=== PATIENT | female | born 1955 | race Caucasian/White ===

== ENCOUNTER 2016-05-02 06:57 | Inpatient (IN) | payer OTHER ==
[2016-05-02] MEDS ORDERED: cefOXitin SODIUM 1 GM in D5W 50 ML IV ONE (07:00)
[2016-05-02] MEDS ORDERED: BUPIVACAINE 0.5% 30 ML SDV ONE (07:11)
[2016-05-02] MEDS ORDERED: LIDOCAINE 1% 5 ML SDV ONE (07:26)
[2016-05-02 08:09] LABS: % IMMATURE GRANULYOCYTES 0.3 % (0.0-1.1); ABSOLUTE IMMATURE GRANULOCYTES 0.01 10^3/uL (0.00-0.10); ADD DIFF? NO; ADD MORPH? NO; ADD SCAN? NO; ATYPICAL LYMPHOCYTE FLAG 20 (0-99); FRAGMENT RBC FLAG 0 (0-99); HEMATOCRIT 38.4 % (38.0-47.0); HEMOGLOBIN 12.9 g/dL (12.6-16.3); LEFT SHIFT FLG 0 (0-99); LIPEMIA HEMOLYSIS FLAG 80 (0-99); MEAN CELL HEMOGLOBIN 28.4 pg (27.9-34.1); MEAN CELL HEMOGLOBIN CONCENTR. 33.6 g/dL (32.4-36.7); MEAN CELL VOLUME 84.4 fL (81.5-99.8); PLATELET CLUMPS FLAG 10 (0-99); PLATELET COUNT 212 10^3/uL (150-400); RED BLOOD CELL COUNT 4.55 10^6/uL (4.18-5.33); RED CELL DISTRIBUTION WIDTH 13.5 % (11.5-15.2)
[2016-05-02 08:20] LABS: APTT 27.1 SEC (23.0-38.0); INR 0.96 (0.83-1.16); PROTIME(PATIENT) 12.7 SEC (12.0-15.0)
[2016-05-02] MEDS ORDERED: MIDAZOLAM 2 MG/2 ML VIAL ONE (08:43)
[2016-05-02] MEDS ORDERED: SCOPOLAMINE HYDROBROMIDE 1.5 MG PATCH TD ONE (08:43)
[2016-05-02] MEDS ORDERED: fentaNYL 100 MCG/2 ML INJ ONE (08:57)
[2016-05-02] MEDS ORDERED: PROPOFOL 200 MG/20 ML VIAL ONE (08:57)
[2016-05-02 09:08] LABS: ANION GAP 10 mEq/L (8-16); CALCIUM 9.8 mg/dL (8.5-10.4); CARBON DIOXIDE 21 mEq/l (22-31); CHLORIDE 113 mEq/L (97-110); CREATININE 1.6 mg/dL (0.6-1.0); GLOMERULAR FILTRATION RATE 33; GLUCOSE 90 mg/dL (70-100); POTASSIUM 4.8 mEq/L (3.5-5.2); SODIUM 144 mEq/L (134-144)
[2016-05-02] MEDS ORDERED: HYDROmorphONE/DILAUDID 2 MG/ML SYR ONE (09:36)
[2016-05-02] MEDS ORDERED: hydrALAZINE 20 MG/ML VIAL ONE (10:42)
[2016-05-02] MEDS ORDERED: fentaNYL 250 MCG/5 ML INJ ONE (10:53)
[2016-05-02] MEDS ORDERED: ONDANSETRON 4 MG/2 ML VIAL ONE (11:34)
[2016-05-02] MEDS ORDERED: DEXAMETHASONE 4 MG/ML VIAL ONE ×2 (11:34)
[2016-05-02] MEDS ORDERED: epHEDrine SULFATE 10 MG/ML SYR ONE ×2 (11:50)
[2016-05-02] MEDS ORDERED: SKIN ADHESIVE (DERMABOND) 1 EACH TP ONE (12:17)
[2016-05-02] MEDS ORDERED: SUGAMMADEX SODIUM 200 MG/2 ML VIAL IVP ONE (12:35)
--- NOTE | 2016-05-02 12:40 | POSTOPPROG ---
Post Op Note Date of Operation: 05/02/16 Surgeon: Shaneka Goss Hydrology Technician: yariel Anesthesiologist: asael Anesthesia: GET(General Endotracheal) Pre-op Diagnosis: rectal ca Post-op Diagnosis: same Indication: 61yo F with rectal ca s/p chemo and radiation Procedure: robotic-assisted LAR with diverting ileostomy Findings: low rectal mass, anastomotic rings intact Inf/Abcess present in the surg proc area at time of surgery?: No Depth: Organ Space EBL: 50-100 Complications: none Drains: Diallo Zapien Specimen(s): rectum anastomotic rings
[2016-05-02] MEDS ORDERED: diphenhydrAMINE 25 MG CAP PO PRN (12:42)
[2016-05-02] MEDS ORDERED: ACETAMINOPHEN 325 MG TAB PO PRN (12:42)
[2016-05-02] MEDS ORDERED: ONDANSETRON DISINTEGRATING 4 MG TAB PO PRN (12:42)
[2016-05-02] MEDS ORDERED: ONDANSETRON 4 MG/2 ML VIAL IVP PRN (12:42)
[2016-05-02] MEDS ORDERED: HYDROmorphONE/DILAUDID 6 MG/30 ML PCA IV PRN (12:42)
[2016-05-02] MEDS ORDERED: NALOXONE HCL 0.4 MG/ML INJ IVP PRN (12:42)
[2016-05-02] MEDS: NS 1,000 ML IV SCH (16:24)
[2016-05-03] MEDS: NS 1,000 ML IV SCH (03:17)
[2016-05-03 05:40] LABS: % IMMATURE GRANULYOCYTES 0.4 % (0.0-1.1); ABSOLUTE IMMATURE GRANULOCYTES 0.04 10^3/uL (0.00-0.10); ADD DIFF? NO; ADD MORPH? NO; ADD SCAN? NO; ATYPICAL LYMPHOCYTE FLAG 0 (0-99); FRAGMENT RBC FLAG 0 (0-99); HEMATOCRIT 31.2 % (38.0-47.0); HEMOGLOBIN 10.5 g/dL (12.6-16.3); LEFT SHIFT FLG 10 (0-99); LIPEMIA HEMOLYSIS FLAG 80 (0-99); MEAN CELL HEMOGLOBIN 28.5 pg (27.9-34.1); MEAN CELL HEMOGLOBIN CONCENTR. 33.7 g/dL (32.4-36.7); MEAN CELL VOLUME 84.8 fL (81.5-99.8); MEAN PLATELET VOLUME 9.9 fL (8.7-11.7); PLATELET CLUMPS FLAG 10 (0-99); PLATELET COUNT 165 10^3/uL (150-400); RED BLOOD CELL COUNT 3.68 10^6/uL (4.18-5.33); RED CELL DISTRIBUTION WIDTH 13.5 % (11.5-15.2)
[2016-05-03 05:49] LABS: ANION GAP 8 mEq/L (8-16); CALCIUM 8.9 mg/dL (8.5-10.4); CARBON DIOXIDE 20 mEq/l (22-31); CHLORIDE 117 mEq/L (97-110); CREATININE 1.5 mg/dL (0.6-1.0); GLOMERULAR FILTRATION RATE 35; GLUCOSE 91 mg/dL (70-100); SODIUM 145 mEq/L (134-144)
[2016-05-03] MEDS ORDERED: ENOXAPARIN 40 MG/0.4 ML SYR SC SCH (09:00)
[2016-05-03] MEDS: ENOXAPARIN 30 MG/0.3 ML SYR SC SCH (09:27)
[2016-05-03] MEDS: LOSARTAN POTASSIUM 25 MG TAB PO SCH (09:27)
--- NOTE | 2016-05-03 11:03 | SOAPPROG ---
SOAP Progress Note Assessment/Plan: Assessment: 61 yo s/p Davinic LAR with diverting loop ileostomy for rectal cancer and neoadjuvant chemoradiation Doing well Neuro - Pain controlled Resp - IS Cards - Monitor for hemodynamic instability. CBC tomorrow GI - Bilious fluid in ostomy appliance. Awaiting gas FEN - NS @ 50. Clears - 8-12 oz per 8 hours - DC call. Baseline elevated Cr Heme/ID - No post op abx indicated. Heparin SQ for prophylaxis Dispo - Inpatient, continue hospital management S: Pain controlled. Not taking pain medications O: Sitting in bed, at bedside Lungs clear, decreased at bases Regular rate BS hypoactive, distension but soft. Mild reactive erythema by incisions. PORSHA with serosanguinous fluid. Ostomy with good profile and bilious fluid in bag Plan: 05/03/16 10:59 Objective: Vital Signs Temp Pulse Resp BP Pulse Ox 36.6 C 80 16 154/75 H 96 05/03/16 07:49 05/03/16 07:49 05/03/16 07:49 05/03/16 09:27 05/03/16 07:49 Laboratory Results 05/03/16 04:34 05/03/16 04:34 05/02/16 05/03/16 05/04/16 05:59 05:59 05:59 Intake Total 2700 Output Total 1250 Balance 1450 PT 12.7 SEC (12.0-15.0) 05/02/16 08:00 INR 0.96 (0.83-1.16) 05/02/16 08:00 ICD10 Worksheet Patient Problems: Problems Problem Status Diagnosed Rectal cancer Acute - ICD10 Problem Qualifiers (1) Rectal cancer
--- NOTE | 2016-05-03 12:22 | GOP ---
[f rep st] OPERATIVE REPORT DATE OF OPERATION: 05/02/2016 SURGEON: Shaneka Goss MD HANDICAPPER HARNESS RACING: HALINA Weir ANESTHESIA: General. ANESTHESIOLOGIST: Houston Candelaria MD PREOPERATIVE DIAGNOSIS: Rectal cancer. POSTOPERATIVE DIAGNOSIS: Rectal cancer. PROCEDURE PERFORMED: Robotic-assisted low anterior resection with diverting ileostomy. FINDINGS: Tattoo well beneath the level of the peritoneal reflection with at least 6 cm grossly on either side. The anastomotic rings were intact. SPECIMENS: Rectum and anastomotic rings. ESTIMATED BLOOD LOSS: 100 cc. INDICATIONS: This patient is a 61-year-old woman with rectal cancer. She underwent neoadjuvant chemoradiation. She presents for resection. DESCRIPTION OF PROCEDURE: The patient was brought into the operating room, placed supine on the table, and general anesthesia was administered. She was then placed in the lithotomy position. Her abdomen and perineum were prepped and draped in the usual sterile fashion. I infiltrated all sites with 0.5% Marcaine prior to making incisions. I made an incision approximately 3 fingerbreadths above her umbilicus to avoid her previous midline incision. I elevated it and made a small incision and inserted the Veress needle. It passed the hanging drop test. Her abdomen insufflated easily to a pressure of 15 mmHg. I inserted the trocar at this site. I then inserted the camera. There were no injuries from trocar placement noted. Under direct vision I placed an 8 mm trocar where I had placed the diverting loop ileostomy in the right lower abdomen and also one in the left lower abdomen. I created an contact center assistant port in the left upper abdomen beneath the costal margin. The robot was brought in. She was placed in the Trendelenburg position. The robot was docked. I turned the insufflation down to 12. I inserted the instruments under direct vision. I placed a grapter in the left upper quadrant , the ProGrasp in the left lower quadrant and fenestrated bipolar in the right lower quadrant. I explored her abdomen. She had a redundant colon. I was able to sweep this out of the way and hold in place with the grapter. I then exchanged and began my dissection with the Harmonic. The sigmoid colon was retracted anteriorly. Due to her uterus and redundant sigmoid, I placed an additional 5 mm trocar in the right upper abdomen. The sigmoid colon was retracted anteriorly and the uterus was also retracted anteriorly. An incision was made in the peritoneum at the level of the sacral promontory and dissection carried out to bring up the mesentery from the retroperitoneum. Posterior dissection of the rectum was done in the presacral space using the Harmonic until I was 6 cm beyond the level of the tattoo. Lateral dissection was performed. Care was taken to avoid injury to the ureters. The lateral attachments were taken down. Anteriorly the peritoneal reflection was opened up and dissection carried distally. The mesentery of the rectum was taken down. I then exchanged the 8 mm trocar for a larger trocar that would accommodate the robotic stapler. I was able to staple the rectum, so I was well beyond the level of the tattoo. The end of the specimen was grasped. I then undocked the robot and moved to the bedside. I made a 5 cm incision over her previous incision in the midline. I dissected down through the subcutaneous space. I divided the muscles and entered the peritoneal cavity. I inserted an Chapito wound protector. I grasped the sigmoid. I divided it sharply. There was healthy bleeding. The specimen was passed off the field. Pathology looked at it and saw the area of concern with 5.5 cm margins on either side. I placed a pursestring suture around the sigmoid colon with 2-0 Prolene. I inserted the anvil and tied this into place. I then placed this back into the abdomen. The Talia drain was placed around the trocar with the Chapito wound protector and towel clips. The abdomen was reinsufflated, used a laparoscope. Next anal dilators were placed. Finally a 29 EEA was placed and the spike was deployed. This was connected to the anvil and the stapler was fired. A leak test was performed and there was no leak. The donuts were inspected and found to be intact. The abdomen was explored. There was no evidence of metastasis. There was no evidence of bleeding. I selected a point on the terminal ilium. I made an ellipse around where the trocar was. I divided down to the fascia enough to accommodate 3 fingerbreadths. brought up the loop of small intestine. I placed a 15 round silicone drain deep in the pelvis. I sutured this in place with 3-0 Nylon. I Next I closed the fascia at the peritoneal with 0 Vicryl. I closed the fascia with 0 PDS. I closed the skin with 3-0 Vicryl followed by 4- 0 Monocryl. The remaining skin incisions were closed with 4-0 Monocryl. Dermabond applied. Next I sutured the ilium to the fascia at the 2 anchoring points with 0 Vicryl. I then made an incision in the ilium to create a diverting loop ileostomy. I performed Brooking sutures with 3-0 Vicryl. I finally matured the rest of the ostomy with 3-0 Vicryl. An appliance was placed. The patient was taken out of the lithotomy position, placed supine, awakened, extubated, and transferred to PACU in stable condition. DRAINS: Cynthia. /[id number]/MODL MTDD
[2016-05-03] MEDS: HYDROCODONE/APAP 5/325 TAB PO PRN ×2 (13:25→20:50)
[2016-05-04 04:29] LABS: % IMMATURE GRANULYOCYTES 0.2 % (0.0-1.1); ABSOLUTE IMMATURE GRANULOCYTES 0.02 10^3/uL (0.00-0.10); ADD DIFF? NO; ADD MORPH? NO; ADD SCAN? NO; ATYPICAL LYMPHOCYTE FLAG 0 (0-99); FRAGMENT RBC FLAG 0 (0-99); HEMATOCRIT 31.2 % (38.0-47.0); HEMOGLOBIN 10.1 g/dL (12.6-16.3); LEFT SHIFT FLG 0 (0-99); LIPEMIA HEMOLYSIS FLAG 80 (0-99); MEAN CELL HEMOGLOBIN 28.1 pg (27.9-34.1); MEAN CELL HEMOGLOBIN CONCENTR. 32.4 g/dL (32.4-36.7); MEAN CELL VOLUME 86.7 fL (81.5-99.8); PLATELET CLUMPS FLAG 0 (0-99); PLATELET COUNT 160 10^3/uL (150-400); RED CELL DISTRIBUTION WIDTH 13.9 % (11.5-15.2)
[2016-05-04] MEDS: LOSARTAN POTASSIUM 25 MG TAB PO SCH (08:33)
[2016-05-04] MEDS: ENOXAPARIN 30 MG/0.3 ML SYR SC SCH (08:33)
[2016-05-04] MEDS: HYDROCODONE/APAP 5/325 TAB PO PRN ×2 (08:43→21:38)
--- NOTE | 2016-05-04 09:35 | SOAPPROG ---
SOAP Progress Note Assessment/Plan: Assessment: 61 yo s/p Davinic LAR with diverting loop ileostomy for rectal cancer and neoadjuvant chemoradiation Doing well Neuro - Pain controlled Resp - IS Cards - Monitor for hemodynamic instability. CBC tomorrow GI - Bilious fluid in ostomy appliance. Gas today FEN - NS @ 50. Clears - DC call 05/03. Baseline elevated Cr Heme/ID - No post op abx indicated. Heparin SQ for prophylaxis Dispo - Inpatient, continue hospital management S: Pain controlled. Not taking pain medications O: Sitting in bed, at bedside Lungs clear, decreased at bases Regular rate BS active, distension but soft. Mild reactive erythema by incisions. PORSHA with serosanguinous fluid. Ostomy with good profile and bilious fluid in bag Plan: 05/03/16 10:59 05/04/16 09:34 Objective: Vital Signs Temp Pulse Resp BP Pulse Ox 36.7 C 85 16 176/96 H 94 05/04/16 08:46 05/04/16 08:46 05/04/16 08:46 05/04/16 08:46 05/04/16 08:46 Laboratory Results 05/04/16 04:11 05/03/16 04:34 05/03/16 05/04/16 05/05/16 05:59 05:59 05:59 Intake Total 2700 1242 Output Total 1250 338 Balance 1450 904 PT 12.7 SEC (12.0-15.0) 05/02/16 08:00 INR 0.96 (0.83-1.16) 05/02/16 08:00 ICD10 Worksheet Patient Problems: Problems Problem Status Diagnosed Rectal cancer Acute - ICD10 Problem Qualifiers (1) Rectal cancer
[2016-05-05] MEDS: LOSARTAN POTASSIUM 25 MG TAB PO SCH (08:28)
[2016-05-05] MEDS: ENOXAPARIN 30 MG/0.3 ML SYR SC SCH (08:29)
--- NOTE | 2016-05-05 09:44 | SOAPPROG ---
SOAP Progress Note Assessment/Plan: Assessment: Laura Curry is a 61 yo F POD #3 s/p Davinci LAR with diverting loop ileostomy for rectal cancer and neoadjuvant chemoradiation Neuro - Pain controlled with PO norco Resp - IS Cards - No current issues. Monitor for hemodynamic instability GI - Bilious fluid in ostomy appliance. Passing flatus. No stool in appliance FEN - NS @ 50. Tolerating clears. Advance to regular - DC call 05/03. Voiding spontaneously. Baseline elevated Cr Heme/ID - No post op abx indicated. Ppx heparin SQ Ostomy education Dispo - Likely d/c tomorrow with home care for ostomy care and education S: She reportedly had a bowel movement last night through the ostomy. Small amount of pain associated with BM. Resolved with norco. No pain currently. No nausea or vomiting. tolerating clears. hungry. O: Laying comfortably in bed, at bedside No increased WOB BS hypoactive but present, softly distended. Mild reactive erythema by incisions. PORSHA with serosanguinous fluid. Ostomy with good profile and bilious fluid in bag Nontender to palpation Objective: Vital Signs Temp Pulse Resp BP Pulse Ox 36.6 C 82 17 152/90 H 96 05/05/16 07:35 05/05/16 07:35 05/05/16 07:35 05/05/16 07:35 05/05/16 07:35 Laboratory Results 05/04/16 04:11 05/03/16 04:34 05/04/16 05/05/16 05/06/16 05:59 05:59 05:59 Intake Total 1242 2132 Output Total 338 420 Balance 904 1712 PT 12.7 SEC (12.0-15.0) 05/02/16 08:00 INR 0.96 (0.83-1.16) 05/02/16 08:00 ICD10 Worksheet Patient Problems: Problems Problem Status Diagnosed Rectal cancer Acute
[2016-05-05 11:17] VITALS: RESP 16
[2016-05-05] MEDS: HYDROCODONE/APAP 5/325 TAB PO PRN (13:37)
--- NOTE | 2016-05-05 15:00 | WOCRNPDOC ---
WOCRN Advanced Assessment Note - Ileostomy Assessment, Advanced Right Lower Abdomen Ileostomy Ileostomy Appliance Intact: Yes Ileostomy Appliance Currently in Use: Two Piece Flat, 2 1/4 (patient will be better served by 2 3/4 wafer in [facility]) Stoma Color: Red Stoma Turgor: Moist, Shiny Stoma Height: Protruding Ileostomy Effluent: Fecal, Thin Ileostomy Details: Loop Ileostomy Comment/Treatment Details: Patient had previous first appointment at outpatient wound healing center. Attempted teaching today but patient very nervous. Opted to give patient reading about pouch change first and to revisit tomorrow. Offered to do demo pouch change without involving her stoma but patient declined and preffered to defer to tomorrow. Trying to assist patient in ordering supplies from [facility] but having difficulty contacting the rep/ getting order sheet. Will follow up tomorrow. Reported to BRENDEN rojas that patient needs to empty own bag and be 100% responsible for her ostomy care until discharge.
[2016-05-06] MEDS: NS 1,000 ML IV SCH (04:26)
[2016-05-06 05:13] VITALS: TEMP 97.9
[2016-05-06 08:30] VITALS: BP 125/89; PULSE 96; O2SAT 95
[2016-05-06] MEDS: LOSARTAN POTASSIUM 25 MG TAB PO SCH (08:31)
[2016-05-06] MEDS: ENOXAPARIN 30 MG/0.3 ML SYR SC SCH (08:39)
[2016-05-06] MEDS: HYDROCODONE/APAP 5/325 TAB PO PRN (08:43)
--- NOTE | 2016-05-06 10:34 | PDIAF ---
- Diagnosis Diagnosis: rectal cancer Code Status: Full Code - Medication Management Discharge Medications: Medications to Continue on Transfer Losartan Potassium [Cozaar 25 mg (*)] 25 mg PO DAILY 04/23/16 [Last Taken ] Hydrocodone/APAP 5/325 [[place] 5/325 (*)] 2 tab PO Q4 PRN #30 tab 05/06/16 [Last Taken Unknown] Penitentiary Antibiotics: none Discharge Medications: Refer to the Discharge Home Medication list for PRN reason. PICC Care - Routine: N/A - Orders Services needed: Home Care, Registered Nurse Home Care Face to Face: I certify that this patient was under my care and that I had the required [id number] encounter meeting the encounter requirements on the discharge day. My findings support the fact that the patient is homebound as defined in CMS Chapter 7 Medicare Benefits Manual 30.1.1, The condition of the patient is such that there exists a normal inability to leave home and consequently, leaving home would require a considerable and taxing effort. Diet Recommendation: no restrictions on diet Diet Texture: Regular Texture Diet Wound Care Instructions: Ostomy care and education - Follow Up Care Current Providers and Referrals: Marcella Washburn MD [Primary Care Provider] - Shaneka Goss MD [Medical Doctor] -
--- NOTE | 2016-05-06 10:41 | SOAPPROG ---
SOAP Progress Note Assessment/Plan: Assessment: Laura Curry is a 61 yo F POD #4 s/p Davinci LAR with diverting loop ileostomy for rectal cancer and neoadjuvant chemoradiation Pain controlled with [place] Bilious fluid and gas per ostomy Tolerating regular diet Will have home care to continue ostomy education Dispo - D/c today with home care for ostomy care and education S: Pain controlled. Passing gas and stool per ostomy. No n/v or abdominal pain O: In bed participating in ostomy appliance change, at bedside No increased WOB +BS, soft. No erythema around incision. PORSHA with serosanguinous fluid. Ostomy edematous draining bilious fluid Nontender to palpation Objective: Vital Signs Temp Pulse Resp BP Pulse Ox 36.6 C 96 16 125/89 H 95 05/06/16 08:29 05/06/16 08:29 05/06/16 08:29 05/06/16 08:29 05/06/16 08:29 Laboratory Results 05/04/16 04:11 05/03/16 04:34 05/05/16 05/06/16 05/07/16 05:59 05:59 05:59 Intake Total 2132 1900 Output Total 420 622 455 Balance 1712 1278 -455 PT 12.7 SEC (12.0-15.0) 05/02/16 08:00 INR 0.96 (0.83-1.16) 05/02/16 08:00 ICD10 Worksheet Patient Problems: Problems Problem Status Diagnosed Rectal cancer Acute
--- NOTE | 2016-05-06 11:30 | WOCRNPDOC ---
ROSHAN Advanced Assessment Note - Ileostomy Assessment, Advanced Right Lower Abdomen Ileostomy Ileostomy Appliance Intact: Yes Ileostomy Appliance Currently in Use: Two Piece Flat, 2 1/4, Moldable Stoma Color: Red Stoma Turgor: Moist Stoma Shape: Oval Stoma Height: Protruding Mucocutaneus Junction: Intact Ileostomy Effluent: Fecal, Liquid Ileostomy Details: Loop Ileostomy Comment/Treatment Details: Follow-up teaching and appliance change at the bedside. Patient emptied existing pouch, and demonstrated adequate dexterity and understanding of process. I performed a full appliance and pouch change with her assistance. Stoma is moist and red, w/ a medium profile and good turgor. Mucocutaneous junction intact w/ sutures noted. Rachel-stomal skin is intact w/ no complications observed. Because this is an ileostomy, w/ high liquid effluent output, I switched patient over to a 2 3/4 cut-to-fit barrier wafer. In addition, I applied a barrier ring to help prevent leaks. Patient attached pouch herself. While she demonstrated a good understanding of the pouch /barrier change process, she would benefit from a few additional teaching sessions. She asked several questions, at times repeating herself, which is an indication that follow-up teaching is needed. Supply order for barrier wafers, rings, pouches, and adhesive remover wipes was faxed to [facility]. In addition, I spoke w/ case managment about setting up at least 2-3 visits from a home theater specialist after discharge to solidify teaching and assess learning.
== END 2016-05-06 13:53 | disposition home health service (06) | DRG 331 ==
LOC: F3E 06:57 → F1N 14:44
PROVIDERS: ADMIT Surgery; ATTEND Surgery
DX: C20 Malignant neoplasm of rectum (principal); Z92.3 Personal history of irradiation; Z92.21 Personal history of antineoplastic chemotherapy; N18.9 Chronic kidney disease, unspecified; I12.9 Hypertensive chronic kidney disease with stage 1 through stage 4 chronic kidney disease, or unspecified chronic kidney disease
CPT/HCPCS: J0360; J0697; J1100; J1170; J1650; J2250; J2405; J2704; J3010

== ENCOUNTER → 2016-07-23 | Outpatient (CLI) | payer OTHER | LOC: FIMAGING 09:04 | PROVIDERS: ATTEND Surgery | DX: Z08 Encounter for follow-up examination after completed treatment for malignant neoplasm (principal); Z85.048 Personal history of other malignant neoplasm of rectum, rectosigmoid junction, and anus ==

== ENCOUNTER 2016-08-01 10:27 | Inpatient (IN) | payer OTHER ==
[~2016-08-01 10:27] MED LIST: cefOXitin SODIUM 1 GM in D5W 50 ML IV ONE
[2016-08-01] MEDS ORDERED: LIDOCAINE 1% 5 ML SDV ONE (10:47)
[2016-08-01] MEDS ORDERED: BUPIVACAINE 0.5% 30 ML SDV ONE (10:57)
[2016-08-01] MEDS ORDERED: LIDOCAINE 1% 5 ML SDV ID PRN (11:18)
[2016-08-01] MEDS ORDERED: LR 1,000 ML IV ONE (11:18)
--- NOTE | 2016-08-01 11:33 | GHP ---
[f rep st] PREOP HISTORY AND PHYSICAL DATE OF ADMISSION: 08/01/2016 ADMITTING DIAGNOSIS: Rectal cancer, status post low anterior resection with diverting ileostomy. HISTORY OF PRESENT ILLNESS: The patient is a 61-year-old woman who had a colonoscopy on 10/23/2015, which showed a fungating ulcerated medium-size mass 7 cm proximal to the anus. She was taken to [facility] operating room for LAR with diverting ileostomy on 05/02/2016. Final pathology revealed no residu al malignancy. She was discharged home on postoperative day #4. She presents today for takedown of her ileostomy. She denies any changes in her health since her last visit. PAST MEDICAL HISTORY: Rectal cancer. PAST SURGICAL HISTORY: Low anterior resection with diverting ileostomy as above. ALLERGIES: No known drug allergies. REVIEW OF SYSTEMS: Ten-point review of systems negative aside from HPI. PHYSICAL EXAMINATION: GENERAL: Well-developed, well-nourished, well-groomed woman in no acute dist ress, accompanied by . HEENT: Normocephalic, atraumatic. No hearing deficits. Pupils equa l and round. No scleral icterus. Mucous membranes moist. NECK: Trachea midline. RESPIRATORY: C lear to auscultation bilaterally. No increased work of breathing. CARDIOVASCULAR: Regular rate an d rhythm. No peripheral edema. ABDOMEN: Bowel sounds present. Soft, nontender, nondistended. Os han pink with good profile. MUSCULOSKELETAL: Normal gait. Normal nails. SKIN: Warm and dry. P SYCH: Mood and affect normal. IMPRESSION AND PLAN: The patient is a 61-year-old woman with rectal cancer who presents now for bill edown of ileostomy. We discussed risks of surgery including, but not limited to, heart attack, stro ke, blood clots, . We discussed the risk of infection, bleeding, leak or damage to surrounding structures. She understands the risks and would like to proceed. She had a Gastrografin enema pre op which was normal. She had her questions answered to her satisfaction. The patient additionally was seen by Dr. Shaneka Goss. /[id number]/MODL
[2016-08-01] MEDS ORDERED: PROPOFOL 200 MG/20 ML VIAL ONE (11:51)
[2016-08-01] MEDS ORDERED: fentaNYL 250 MCG/5 ML INJ ONE (11:51)
[2016-08-01] MEDS ORDERED: MIDAZOLAM 2 MG/2 ML VIAL ONE (12:22)
--- NOTE | 2016-08-01 13:56 | POSTOPPROG ---
Post Op Note Date of Operation: 08/01/16 Surgeon: Shaneka Goss [facility] Scientist: yariel Anesthesiologist: zeferino Anesthesia: GET(General Endotracheal) Pre-op Diagnosis: rectal cancer Post-op Diagnosis: same Indication: 61yo F with rectal cancer and diverting ileostomy who presents for reversal Procedure: ileostomy takedown Findings: none unusual Inf/Abcess present in the surg proc area at time of surgery?: No Depth: Organ Space EBL: Minimal Complications: none immediately postoperatively
[2016-08-01] MEDS ORDERED: ONDANSETRON DISINTEGRATING 4 MG TAB PO PRN (13:58)
[2016-08-01] MEDS ORDERED: diphenhydrAMINE 25 MG CAP PO PRN (13:58)
[2016-08-01] MEDS ORDERED: ACETAMINOPHEN 325 MG TAB PO PRN (13:58)
[2016-08-01] MEDS ORDERED: HYDROmorphONE/DILAUDID 1 MG/ML SYR IVP PRN (13:58)
[2016-08-01] MEDS ORDERED: HYDROCODONE/APAP 5/325 TAB PO PRN (13:58)
[2016-08-01] MEDS ORDERED: ONDANSETRON 4 MG/2 ML VIAL IVP PRN (13:58)
[2016-08-01] MEDS ORDERED: fentaNYL 100 MCG/2 ML INJ ONE (14:00)
[2016-08-01] MEDS ORDERED: hydrALAZINE 20 MG/ML VIAL ONE (14:11)
--- NOTE | 2016-08-01 14:22 | GOP ---
[f rep st] OPERATIVE REPORT DATE OF OPERATION: 08/01/2016 SURGEON: Shaneka Goss MD SUPERVISOR CELLARS: Brittany Ho PA-C. ANESTHESIA: General. ANESTHESIOLOGIST: Richard Paez. PREOPERATIVE DIAGNOSIS: Rectal cancer with diverting loop ileostomy. POSTOPERATIVE DIAGNOSIS: Rectal cancer with diverting loop ileostomy. PROCEDURE PERFORMED: Loop ileostomy take down. FINDINGS: No unusual findings. SPECIMENS: Terminal ilium to Pathology. ESTIMATED BLOOD LOSS: 10 cc. INDICATIONS: The patient is a 61-year-old woman who underwent chemoradiation followed by a low ante rior resection for cancer. She had a diverting loop ileostomy. DESCRIPTION OF PROCEDURE: The patient was brought into the operating room, placed supine on the tab le, and general anesthesia was administered. I sutured her ileostomy close prior to the start of e case. Her abdomen was prepped with Betadine and draped in the usual sterile fashion. I infiltrat ed the area with 0.5% Marcaine prior to making incisions. I made an ellipse around the takedown sit e. I dissected down through the subcutaneous tissues until I encountered the wall of the bowel. I then traced this to the level of the fascia. I dissected both limbs of the bowel free from the surr ounding fascia. It was clear both above and below the peritoneum. I then clipped the suture I had made preoperatively and entered a MAX stapler through each limb of the bowel and fired the stapler t o make a [id number] functional end-to-end anastomosis. I reinforced the staple line. I then used a 2nd MAX 75 to close the enterotomy. The anastomosis was widely patent. There were no areas of c oncern. There was excellent blood supply. The bowel was returned to the abdominal cavity. The fas jo was closed with 0 PDS. Skin closed with 0 Vicryl in a pursestring fashion. Anisha, Hydrofera B lue and an Allevyn border were placed. She was awakened in the operating room, extubated, transferr ed to PACU in stable condition. /[id number]/MODL
[2016-08-01] MEDS ORDERED: HYDROmorphONE/DILAUDID 2 MG/ML INJ ONE (14:23)
[2016-08-01] MEDS: NS 1,000 ML IV SCH (17:10)
[2016-08-02 05:39] LABS: % IMMATURE GRANULYOCYTES 0.7 % (0.0-1.1); ABSOLUTE IMMATURE GRANULOCYTES 0.07 10^3/uL (0.00-0.10); ADD DIFF? NO; ADD MORPH? NO; ADD SCAN? NO; ATYPICAL LYMPHOCYTE FLAG 0 (0-99); FRAGMENT RBC FLAG 0 (0-99); HEMATOCRIT 29.6 % (38.0-47.0); HEMOGLOBIN 9.6 g/dL (12.6-16.3); LEFT SHIFT FLG 10 (0-99); LIPEMIA HEMOLYSIS FLAG 80 (0-99); MEAN CELL HEMOGLOBIN 26.4 pg (27.9-34.1); MEAN CELL HEMOGLOBIN CONCENTR. 32.4 g/dL (32.4-36.7); MEAN CELL VOLUME 81.3 fL (81.5-99.8); MEAN PLATELET VOLUME 9.4 fL (8.7-11.7); PLATELET CLUMPS FLAG 30 (0-99); PLATELET COUNT 215 10^3/uL (150-400); RED BLOOD CELL COUNT 3.64 10^6/uL (4.18-5.33); RED CELL DISTRIBUTION WIDTH 13.7 % (11.5-15.2)
[2016-08-02 05:51] LABS: ANION GAP 11 mEq/L (8-16); CALCIUM 9.2 mg/dL (8.5-10.4); CARBON DIOXIDE 14 mEq/l (22-31); CHLORIDE 120 mEq/L (97-110); GLOMERULAR FILTRATION RATE 25; GLUCOSE 100 mg/dL (70-100); POTASSIUM 5.4 mEq/L (3.5-5.2); SODIUM 145 mEq/L (134-144)
--- NOTE | 2016-08-02 11:00 | SOAPPROG ---
SOAP Progress Note Assessment/Plan: Assessment: s/p ileostomy takedown not using pain medications ambulate clears, adat when passing flatus S: Has pain but tolerable. No flatus. No nausea O: Abdomen soft. Dressing stained. Sitting in chair, appears comfortable Plan: 08/02/16 10:59 Objective: Vital Signs Temp Pulse Resp BP Pulse Ox 36.6 C 92 16 151/78 H 98 08/02/16 08:00 08/02/16 08:00 08/02/16 08:00 08/02/16 08:00 08/02/16 08:00 Laboratory Results 08/02/16 05:22 08/02/16 05:22 08/01/16 08/02/16 08/03/16 05:59 05:59 05:59 Intake Total 1853 Output Total 700 Balance 1153 ICD10 Worksheet Patient Problems: Problems Problem Status Onset Rectal cancer Acute
[2016-08-02] MEDS: ENOXAPARIN 40 MG/0.4 ML SYR SC SCH (11:29)
[2016-08-02 15:25] LABS: POTASSIUM 4.6 mEq/L (3.5-5.2)
[2016-08-02] MEDS: NS 1,000 ML IV SCH (17:20)
[2016-08-02] MEDS: HYDROCODONE/APAP 5/325 TAB PO PRN (20:53)
[2016-08-02] MEDS: LOSARTAN POTASSIUM 25 MG TAB PO SCH (22:32)
[2016-08-03] MEDS ORDERED: hydrALAZINE 20 MG/ML VIAL IVP PRN (00:30)
[2016-08-03 05:34] LABS: % IMMATURE GRANULYOCYTES 0.6 % (0.0-1.1); ABSOLUTE IMMATURE GRANULOCYTES 0.05 10^3/uL (0.00-0.10); ADD DIFF? NO; ADD MORPH? NO; ADD SCAN? NO; ATYPICAL LYMPHOCYTE FLAG 0 (0-99); FRAGMENT RBC FLAG 0 (0-99); HEMATOCRIT 29.8 % (38.0-47.0); HEMOGLOBIN 9.8 g/dL (12.6-16.3); LEFT SHIFT FLG 0 (0-99); LIPEMIA HEMOLYSIS FLAG 80 (0-99); MEAN CELL HEMOGLOBIN 26.5 pg (27.9-34.1); MEAN CELL HEMOGLOBIN CONCENTR. 32.9 g/dL (32.4-36.7); MEAN CELL VOLUME 80.5 fL (81.5-99.8); MEAN PLATELET VOLUME 9.5 fL (8.7-11.7); PLATELET CLUMPS FLAG 0 (0-99); PLATELET COUNT 211 10^3/uL (150-400); RED CELL DISTRIBUTION WIDTH 13.8 % (11.5-15.2)
[2016-08-03 05:51] LABS: ANION GAP 13 mEq/L (8-16); CALCIUM 9.4 mg/dL (8.5-10.4); CARBON DIOXIDE 14 mEq/l (22-31); CHLORIDE 117 mEq/L (97-110); CREATININE 1.5 mg/dL (0.6-1.0); GLOMERULAR FILTRATION RATE 35; GLUCOSE 96 mg/dL (70-100); SODIUM 144 mEq/L (134-144)
[2016-08-03] MEDS: ENOXAPARIN 40 MG/0.4 ML SYR SC SCH (08:38)
[2016-08-03] MEDS: LOSARTAN POTASSIUM 25 MG TAB PO SCH ×2 (08:38→18:02)
--- NOTE | 2016-08-03 10:36 | SOAPPROG ---
SOAP Progress Note Assessment/Plan: Assessment: s/p ileostomy takedown not using pain medications ambulate Regular diet S: Has pain but tolerable. Flatus. Small amount of blood. No nausea O: Abdomen soft. Dressing stained. Sitting in chair, appears comfortable Plan: 08/02/16 10:59 08/03/16 10:36 Objective: Vital Signs Temp Pulse Resp BP Pulse Ox 36.4 C 109 H 16 179/105 H 99 08/03/16 08:00 08/03/16 08:00 08/03/16 08:00 08/03/16 08:00 08/03/16 08:00 Laboratory Results 08/03/16 05:12 08/03/16 05:12 08/02/16 08/03/16 08/04/16 05:59 05:59 05:59 Intake Total 9073 0501 Output Total 908 9800 Balance 1153 -583 ICD10 Worksheet Patient Problems: Problems Problem Status Onset Rectal cancer Acute
[2016-08-03] MEDS ORDERED: LOSARTAN POTASSIUM 25 MG TAB PO ONE (18:30)
[2016-08-03] MEDS ORDERED: IPRATROPIUM/ALBUTEROL 3 ML DEYVIAL ONE (19:09)
[2016-08-03] MEDS: HYDROCODONE/APAP 5/325 TAB PO PRN (23:45)
[2016-08-04 05:36] LABS: CREATININE 1.7 mg/dL (0.6-1.0)
--- NOTE | 2016-08-04 08:44 | SOAPPROG ---
SOAP Progress Note Assessment/Plan: Assessment: 61yo F with rectal cancer s/p ileostomy takedown Pain controlled s pain meds Tolerating regular diet Ambulating May shower BP improved this morning Change outer dressing before d/c F/u Dr. Goss/Brittany HUMPHREY on Thursday for packing change S: no pain this morning. Passing flatus, no BM yet. No nausea or vomiting. No other complaints O: sitting up in bed, comfortable, NAD, at bedside No increased WOB, CTAB RRR Abd soft, nt, nd. +BS throughout. Dressing stained Objective: Vital Signs Temp Pulse Resp BP Pulse Ox 36.5 C 81 14 145/90 H 99 08/04/16 07:41 08/04/16 07:41 08/04/16 07:41 08/04/16 07:41 08/04/16 07:41 Laboratory Results 08/03/16 05:12 08/04/16 04:28 08/03/16 08/04/16 08/05/16 05:59 05:59 05:59 Intake Total 2117 400 Output Total 2700 400 Balance -583 0 ICD10 Worksheet Patient Problems: Problems Problem Status Onset Rectal cancer Acute
[2016-08-04] MEDS: LOSARTAN POTASSIUM 25 MG TAB PO SCH (09:11)
[2016-08-04] MEDS: ENOXAPARIN 40 MG/0.4 ML SYR SC SCH (09:12)
[2016-08-04 11:09] VITALS: BP 160/98; PULSE 103; RESP 16; TEMP 97.6; O2SAT 98
--- NOTE | 2016-08-04 21:33 | GDS ---
[f rep st] DISCHARGE SUMMARY ADMITTING DIAGNOSIS: Rectal cancer. SECONDARY DIAGNOSES: Ileostomy, hypertension. REASON FOR ADMISSION: The patient is a 61-year-old woman with rectal cancer who has undergone chemo therapy, radiation, low anterior resection with diverting ileostomy. She presented at this time for takedown of the ileostomy. HOSPITAL COURSE: She was taken to the operating room on 08/01/2016, by Dr. Shaneka Goss for an ileos han takedown. There were no unusual findings, and the wound was dressed with Hydrofera Blue Ready and an Allevyn bandage. On postoperative day number 1, she began to pass flatus and her diet was ad vanced to clears. She did not use pain medications through her hospital stay. By postoperative day number 3, she was ready for discharge. She was tolerating a regular diet, ambulating independently , and pain was controlled. CONDITION: She is being discharged home in stable condition, pain controlled, tolerating regular di et, ambulating independently. DISCHARGE MEDICATIONS: She was instructed to resume home medications. Please see EMR for further d etail. She did not want a prescription for pain medicine. DISCHARGE INSTRUCTIONS AND FOLLOWUP: She may shower. She will change the outer dressing as needed. She will return to our office on Thursday for packing change. She will follow a low fiber diet for 2 weeks. She understands to avoid heavy lifting, pushing, or pulling greater than 10 pounds for 6 w eeks after surgery. She will call our office with any worsening symptoms, questions, or concerns. /[id number]/MODL
== END 2016-08-04 16:21 | disposition home or self-care (01) | DRG 331 ==
LOC: F3E 10:27
PROVIDERS: ADMIT Surgery; ATTEND Surgery
PROC: 0DBB0ZZ Excision of Ileum, Open Approach (ICD-10-PCS; principal; 2016-08-01 12:00)
DX: C20 Malignant neoplasm of rectum (principal)
CPT/HCPCS: J0360; J0697; J1170; J1650; J2250; J2405; J2704; J3010

== ENCOUNTER → 2018-08-16 | Outpatient (CLI) | payer OTHER | LOC: FIMAGING 09:58 ==

== ENCOUNTER → 2018-08-19 | Outpatient (CLI) | payer OTHER | LOC: FIMAGING 06:48 | DX: N26.1 Atrophy of kidney (terminal) (principal) ==